=== PATIENT | female | born 1970 | race Two or more races ===

== ENCOUNTER 2020-10-02 21:10 | Emergency (ER) | payer OTHER ==
[~2020-10-02] VITALS: Ht 160 cm; Wt 72.6 kg
[~2020-10-02 21:10] MED LIST: ATENOLOL25 MG PO; BENADRYL50 MG PO; METFORMIN HCL500 MG PO; ZANTAC300 MG PO
[2020-10-02] MEDS ORDERED: INVOKAMET 150-1 EACH (21:56)
[2020-10-02] MEDS ORDERED: ZESTRIL10 M1 (21:56)
[2020-10-02] MEDS ORDERED: LANTUS SOL100 UNIT/1 (21:56)
== END 2020-10-03 10:17 | disposition home or self-care (01) ==
LOC: ER 21:10
DX: U07.1 COVID-19 (principal); R53.1 Weakness; R50.9 Fever, unspecified; R05 Cough; R06.02 Shortness of breath